=== PATIENT | male | born 1970 | race Caucasian/White ===

== ENCOUNTER 2025-02-10 13:50 | Emergency (ER) | payer BC ==
[~2025-02-10] VITALS: Ht 190.5 cm; Wt 111.0 kg
[2025-02-10 13:55] VITALS: TEMP 36.9; O2SAT 100
[2025-02-10 14:19] LABS: HEMATOCRIT. 47.1 % (42.0-52.0); HEMOGLOBIN. 16.0 g/dL (14.0-18.0); MEAN PLATELET VOLUME 7.4 fl (7.4-10.4); PLATELET 269 x1000/uL (130-400); RED BLOOD CELL COUNT 5.60 mill/uL (4.7-6.1); RED CELL DISTRIBUTION WIDTH 14.3 % (11.6-14.6)
[2025-02-10] MEDS: MORPHINE SULFATE 4 MG/ML INJ (FOR IV/IM USE) IV STA (14:25)
[2025-02-10] MEDS: KETOROLAC 30MG/ML VIAL IV STA (14:25)
[2025-02-10] MEDS: SODIUM CHLORIDE 0.9% 1,000 ML IV ONE (14:25)
[2025-02-10] MEDS: MAGNESIUM/ALUMINUM HYDROXIDE/SIMETHICONE 30ML UDC PO STA (14:25)
[2025-02-10] MEDS: ONDANSETRON HCL 4MG/2ML INJ IV STA (14:25)
[2025-02-10 14:37] LABS: CREATININE 0.9 mg/dL (0.6-1.3); TROPONIN I HIGH SENSITIVITY < 4 ng/L (3.0-53); UREA NITROGEN BLOOD 9 mg/dL (9-23)
[2025-02-10 14:39] LABS: ASPARTATE AMINOTRANSFERASE 22 IU/L (<34); BILIRUBIN DIRECT 0.2 mg/dL (<=3.0); BILIRUBIN TOTAL 0.6 mg/dL (0.1-1.0); PROTEIN TOTAL 6.9 g/dL (6.0-8.3)
[2025-02-10 14:51] LABS: BAND% 2.0 % (1.0-6.0); LYMPHOCYTES % MANUAL 3.0 % (20.0-50.0); MONOCYTES % MANUAL 6.0 % (2.0-8.0); NEUTROPHILS % MANUAL 89.0 % (45.0-75.0)
[2025-02-10 14:52] LABS: PLATELET ESTIMATE NORMAL
[2025-02-10 14:55] LABS: INR 1.0
[2025-02-10 16:28] VITALS: BP 148/87; PULSE 61; RESP 16; O2SAT 97
== END 2025-02-10 16:32 | disposition home or self-care (01) ==
LOC: ER 13:50
DX: K80.50 Calculus of bile duct without cholangitis or cholecystitis without obstruction (principal); I10 Essential (primary) hypertension
CPT/HCPCS: 80076; 80048; 83690; 85025; 85610; 84484; 36415; 76705; 96361; 96374; 96375; 99285; J1885; J2405; J2270; J7030; Z7610